=== PATIENT | female | born 1985 | race Native Hawaiian/Other Pacific Islander ===

== ENCOUNTER 2017-07-12 12:53 | Inpatient (IN) | payer OTHER ==
--- NOTE | 2017-07-09 12:09 | History and Physical Report ---
History of Present Illness Date of examination: 07/09/17 Date of admission: 07/09/2017 Chief complaint: Presents from [facility] with bulging membranes at 19 1/7 weeks. Denies CTX, LOF, and VB. Admits to pelvic and vaginal pressure. History of present illness: Early entry into care at 5 6/7 Weeks, Currently receiving 17-OH Progestrone weekly due to a hx of delivery at 31 weeks in 2008. 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) YARDMASTER History: abnormal PAP smear (LSIL (05/2017)) Family/Genetic History: none Social history: - Obstetrical History Expected Date of Delivery: 12/02/17 Actual Gestation: 19 Week(s) 1 Day(s) : 3 Para: 2 Hx # Term Pregnancies: 1 Number of Pregnancies: 1 Number of Living Children: 2 #1 Infant Gender: Male year: 2,000 Birthweight: 2.722 kg Method of Delivery: Vaginal Gestational age at delivery: 40 Complications: none #2 Infant Gender: Male year: 2,009 Birthweight: 1.361 kg Method of Delivery: Vaginal Gestational age at delivery: 31 Medications and Allergies Active Meds: Active Medications Acetaminophen (Tylenol) 650 mg PO Q4H PRN PRN Reason: Pain MILD(1-3)/Fever >100.5/LOVING Butorphanol Tartrate (Stadol) 2 mg IV Q2H PRN PRN Reason: Labor Pain Docusate Sodium (Colace) 100 mg PO Q12H PRN PRN Reason: Constipation Ampicillin Sodium (Polycillin/Ns 1 Gm/50 Ml) 1 gm in 50 mls @ 100 mls/hr IV Q4HR VIN PRN Reason: Protocol Ampicillin Sodium (Polycillin/Ns 2 Gm/100 Ml) 2 gm in 100 mls @ 100 mls/hr IV ONCE ONE PRN Reason: Protocol Stop: 07/09/17 12:47 Lactated Ringer's (Lactated Ringers) 1,000 mls @ 125 mls/hr IV DIRECT VIN Multivitamins/Iron/Calcium ( Vitamin) 1 each PO QDAY VIN Zolpidem Tartrate (Ambien) 10 mg PO ONCE PRN PRN Reason: Sleep Review of Systems All systems: negative - Vital Signs Vital signs: Vital Signs Pulse BP 97 H 135/84 07/09/17 12:00 07/09/17 12:00 Temp Pulse Resp BP Pulse Ox 97 H 135/84 07/09/17 12:00 07/09/17 12:00 - Physical Exam Breasts: Positive: normal Lungs: Positive: Clear to auscultation, Normal air movement Abdomen: Positive: normal appearance, soft, normal bowel sounds Genitourinary (Female): Positive: normal external genitalia, normal perenium Vagina: Positive: normal moisture Cervix: Positive: other Uterus: Positive: enlarged Anus/Rectum: Positive: normal perianal skin Extremities: Positive: normal - Obstetrical FHR: auscultation normal (160s) Uterine Contraction Monitor Mode: External Uterine Contraction Pattern: Absent Uterine Tone Measurement Phase: Resting Uterine Contraction Intensity: Mild Results All other labs normal. Assessment and Plan A: IUP @ 19 1/7 Weeks Buklging Membranes Hx of Delivery P: Admit to L&D per routine orders IV hydration IV Pain Control (PRN) CBC and Type and Screen ABX prophylaxis Trendelenburg Position with [facility] Consult Dr. Ortiz at bedside and agrees with current plan of care
[2017-07-09] MEDS: LACTATED RINGERS 1,000 ML IV SCH ×2 (12:59→20:25)
[2017-07-09 13:03] LABS: Basophils % (Auto) 0.2 % (0.0-1.8); Eosinophils # (Auto) 0.1 K/mm3 (0.0-0.4); Eosinophils % (Auto) 0.6 % (0.0-4.3); Hemoglobin 12.2 gm/dl (10.1-14.3); Lymphocytes # (Auto) 2.1 K/mm3 (1.2-5.4); Mean Corpuscular HGB Conc 35 % (30-34); Mean Corpuscular Hemoglobin 30 pg (28-32); Mean Corpuscular Volume 87 fl (79-97); Monocytes # (Auto) 0.5 K/mm3 (0.0-0.8); Monocytes % (Auto) 4.9 % (0.0-7.3); Platelet Count 233 K/mm3 (140-440); Red Cell Distribution Width 14.2 % (13.2-15.2)
[2017-07-09 13:09] LABS: Bacteria,Urine 2+ /HPF (Negative); Bilirubin,Urine NEG (Negative); Blood,Urine NEG (Negative); Color,Urine Yellow (Yellow); Mucus,Urine FEW /HPF; Nitrite,Urine NEG (Negative); Protein,Urine <15 mg/dL mg/dL (Negative); Urobilinogen,Urine < 2.0 mg/dL (<2.0)
[2017-07-09 13:25] LABS: Amphetamine Screen,Urine PRESUMPTIVE NEGATIVE; Benzodiazepines Screen,Urine PRESUMPTIVE NEGATIVE; Cannabinoid Screen,Urine PRESUMPTIVE NEGATIVE; Cocaine Screen,Urine PRESUMPTIVE NEGATIVE; Methadone Screen,Urine PRESUMPTIVE NEGATIVE; Opiate Screen,Urine PRESUMPTIVE NEGATIVE
--- NOTE | 2017-07-09 14:59 | Ultrasound Report ---
OB ultrasound: Cervical length evaluation; bulging sac Transvaginal and transabdominal imaging is performed. There is a burris gestation in breech presentation with a bulging sac into the vagina containing both feet. The width of the sac is approximately 7 cm. The cervix cannot be accurately measured but may be as much as 2 cm in length. There is a heart rate 147 beats per minute. The clinical gestational age is approximately 18 weeks 6 days. Impression: Incompetent cervix with bulging sac.
[2017-07-09] MEDS: POLYCILLIN/NS 1 GM/50 ML 1 GM/50 ML BAG IV SCH (17:17)
[2017-07-09] MEDS: STADOL IV PRN (18:11)
--- NOTE | 2017-07-09 19:21 | Consultation ---
History of Present Illness Consult date: 07/09/17 Requesting physician: MI SANTILLAN Reason for consult: contractions History of present illness: This is a 31 year old para 1101 at 19 weeks 1 days gestation (based on and LEONARDO of 12/02/17 ) for whom I recently provided a perinatology consultation for evaluation of suspected cervical shortening and dilation. The patient presented to following a regular visit and was oted to have BBOW (see below). At the time the patient was complaining of abdominal pain. At the time of my consultation the patient was on 17-OHP. This patient is the history of a delivery delivered in 2008 with unknown etiology. PAST OB HISTORY: * 1999: at term. BW: 6 pounds. * 2008: at 31 weeks. BW: 3 pounds. No records available for review. PAST MEDICAL & SURGICAL HISTORY: See report in hospital chart. PHYSICAL EXAM: Vital signs stable: Abdominal exam benign: Admission SVE: Visibly dilated to ~ 2 cm with BBOW measuring 7 cm. Nitrazine negative. SONO AT [facility] (07/09/17) EFW: 323 gm, FHR: 163 bpm Cervical Length: 2.9 cm Internal os/LORENA appear bulging in appearance. [facility] SONOGRAPHY 07/09/17 Transvaginal and transabdominal scan. Bulging sac into the vagina containing both feet. The width of the sac is 7 cm. The cervix cannot be accurately measured but may be as much as 2 cm in (?) width. 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 DANCER History: abnormal PAP smear (LSIL (05/2017)) Family/Genetic History: none - Obstetrical History : 3 #1 Gender: Male year: 2,000 Birthweight: 2.722 kg Method of Delivery: Vaginal Gestational age at delivery: 40 Complications: none #2 Infant Gender: Male year: 2,009 Birthweight: 1.361 kg Method of Delivery: Vaginal Gestational age at delivery: 31 Medications and Allergies Allergies Allergy/AdvReac Type Severity Reaction Status Date / Time No Known Allergies Allergy Unverified 07/09/17 12:10 Active Meds: Active Medications Acetaminophen (Tylenol) 650 mg PO Q4H PRN PRN Reason: Pain MILD(1-3)/Fever >100.5/LOVING Butorphanol Tartrate (Stadol) 2 mg IV Q2H PRN PRN Reason: Labor Pain Last Admin: 07/09/17 18:11 Dose: 2 mg Docusate Sodium (Colace) 100 mg PO Q12H PRN PRN Reason: Constipation Lactated Ringer's (Lactated Ringers) 1,000 mls @ 125 mls/hr IV DIRECT VIN Last Admin: 07/09/17 12:59 Dose: 125 mls/hr Ampicillin Sodium (Polycillin/Ns 1 Gm/50 Ml) 1 gm in 50 mls @ 100 mls/hr IV Q4H VIN PRN Reason: Protocol Last Admin: 07/09/17 17:17 Dose: 100 mls/hr Multivitamins/Iron/Calcium ( Vitamin) 1 each PO QDAY [facility] Zolpidem Tartrate (Ambien) 10 mg PO ONCE PRN PRN Reason: Sleep - Vital Signs Vital signs: Vital Signs Pulse BP 97 H 135/84 07/09/17 12:00 07/09/17 12:00 Temp Pulse Resp BP Pulse Ox 97.8 F 106 H 16 107/76 07/09/17 12:18 07/09/17 16:35 07/09/17 12:18 07/09/17 16:35 Results Result Diagrams: 07/09/17 12:12 Abnormal lab results 07/09/17 07/09/17 Range/Units 12:12 Unknown MCHC 35 H (30-34) % Seg Neutrophils % 75.3 H (40.0-70.0) % Seg Neutrophils # 8.1 H (1.8-7.7) K/mm3 U Epithel Cells (Auto) 37.0 H (0-13.0) /HPF All other labs normal. Assessment and Plan ASSESSMENT * This is a 32 year old para 1101 with apparent cervical shortening noted at 19 weeks of which are suggestive of an impending previable delivery ( inevitable ). * NOT a candidate for cerclage placement. SUGGESTED MANAGEMENT PLAN * We are in agreement with the ongoing admission to [facility]. * The options for the management of this were discussed with the patient in detail. * Given the degree of cervical effacement and dilatation noted on exam and via sonography, this patient IS NOT a candidate for rescue cerclage at this time. * There is currently no indication for steroids at this time. * We would however, recommend steroids at 23-24 weeks gestation. * Consider treatment with indomethacin 50 mg q 6 hours x 72 hours. * Consider treatment with progesterone suppositories q HS. * Bedrest in Trendelenberg position * Given the current degree of cervical dilation, the prospect for spontaneous rupture of membranes and uterine contractions unresponsive to tocolytic medications would appear to be appreciable. * While ongoing attempts to pharmacologically prolong should be pursued at this time, it would also be prudent to appreciate clinical situations for which continued tocolysis would be contraindicated. * I have indicated to the patient that the following occurrences would be indications for discontinuation of expectant management and proceeding with delivery: Unexplained vaginal bleeding heart rate changes suggesting uteroplacental insufficiency / demise. Rupture of membranes with painful contractions Advanced cervical dilation beyond 4-5 cm Fever, chills or uterine tenderness * I have reviewed the fact that based on this patients current presentation, she may benefit from a cerclage in future pregnancies. * [facility] will continue to follow this patient during her hospitalization. Thank you for allowing us to participate in the care of this patient. We look forward to the opportunity to assist in her continued management. If you have any questions, I may be reached at [phone].
[2017-07-09] MEDS: INDOCIN PO SCH (23:04)
[2017-07-10] MEDS: TYLENOL PO PRN ×2 (01:01→20:46)
[2017-07-10] MEDS: POLYCILLIN/NS 1 GM/50 ML 1 GM/50 ML BAG IV SCH ×6 (01:07→20:27)
[2017-07-10] MEDS: LACTATED RINGERS 1,000 ML IV SCH (05:12)
[2017-07-10] MEDS: INDOCIN PO SCH ×3 (05:13→17:36)
[2017-07-10] MEDS: PRENATAL VITAMIN PO SCH (09:19)
--- NOTE | 2017-07-10 11:08 | Progress Note ---
Assessment and Plan - Patient Problems (1) 19 weeks gestation of Current Visit: Yes Status: Acute Plan to address problem: Will continue vitals and monitor for bleeding or PPROM. (2) Inevitable Current Visit: Yes Status: Acute Plan to address problem: Expectant management. Subjective - Subjective Date of service: 07/10/17 Principal diagnosis: Inevitable at 19 weeks. Interval history: Patient is a 32 year old who is at 19 weeks gestation and was admitted yesterday for advanced cervical dilatation. She denied any contraction, fluid leakage or bleeding, but on exam, her cervix was found to be dilated with bulging membranes in the vagina. Sonogram showed the baby to be breech with feet in the vagina. MFM consult was done yesterday by Dr. Campa. Prognosis were discussed with the patient. Due to the baby being pre-viable and advanced cervical dilatation, no intervention was done. That was discussed with the patient yesterday and this AM. Patient wanted everything done if possible. I discussed the prognosis again with the patient and I told her that she may rupture at anytime and deliver. She wants some time to think about the whole situation. Objective - Vital Signs Vital Signs: Vital Signs - 12hr 07/10/17 07/10/17 07/10/17 05:14 05:19 08:12 Temperature Pulse Rate 86 86 88 Respiratory Rate Blood Pressure 110/52 136/82 Blood Pressure 110/52 [Left] 07/10/17 08:20 Temperature 97.8 F Pulse Rate 88 Respiratory 18 Rate Blood Pressure Blood Pressure 136/82 [Left] - Exam Cardiovascular: Normal S1, Normal S2 Lungs: Clear to auscultation Vulva: both: normal Uterine Contraction Pattern: Absent Deep Tendon Reflex Grade: Normal +2 - Labs Labs: Abnormal Labs 07/09/17 07/09/17 12:12 Unknown MCHC 35 H Seg Neutrophils % 75.3 H Seg Neutrophils # 8.1 H U Epithel Cells (Auto) 37.0 H Laboratory Results - last 24 hr 07/09/17 07/09/17 07/09/17 12:12 12:15 Unknown WBC 10.8 RBC 4.00 Hgb 12.2 Hct 35.0 MCV 87 MCH 30 MCHC 35 H RDW 14.2 Plt Count 233 Lymph % (Auto) 19.0 Teller % (Auto) 4.9 Eos % (Auto) 0.6 Baso % (Auto) 0.2 Lymph # 2.1 Teller # 0.5 Eos # 0.1 Baso # 0.0 Seg Neutrophils % 75.3 H Seg Neutrophils # 8.1 H Urine Color Yellow Urine Turbidity Cloudy Urine pH 5.0 Ur Specific Pray 1.006 Urine Protein <15 mg/dl Urine Glucose (UA) Neg Urine Ketones Neg Urine Blood Neg Urine Nitrite Neg Urine Bilirubin Neg Urine Urobilinogen < 2.0 Ur Leukocyte Esterase Mod Urine WBC (Auto) 5.0 Urine RBC (Auto) 3.0 U Epithel Cells (Auto) 37.0 H Urine Bacteria (Auto) 2+ Urine Mucus Few Urine Opiates Screen Urine Methadone Screen Ur Barbiturates Screen Ur Phencyclidine Scrn Ur Amphetamines Screen U Benzodiazepines Scrn Urine Cocaine Screen U Marijuana (THC) Screen Drugs of Abuse Note Blood Type O POSITIVE Antibody Screen Negative 07/09/17 Unknown WBC RBC Hgb Hct MCV MCH MCHC RDW Plt Count Lymph % (Auto) Teller % (Auto) Eos % (Auto) Baso % (Auto) Lymph # Teller # Eos # Baso # Seg Neutrophils % Seg Neutrophils # Urine Color Urine Turbidity Urine pH Ur Specific Pray Urine Protein Urine Glucose (UA) Urine Ketones Urine Blood Urine Nitrite Urine Bilirubin Urine Urobilinogen Ur Leukocyte Esterase Urine WBC (Auto) Urine RBC (Auto) U Epithel Cells (Auto) Urine Bacteria (Auto) Urine Mucus Urine Opiates Screen Presumptive negative Urine Methadone Screen Presumptive negative Ur Barbiturates Screen Presumptive negative Ur Phencyclidine Scrn Presumptive negative Ur Amphetamines Screen Presumptive negative U Benzodiazepines Scrn Presumptive negative Urine Cocaine Screen Presumptive negative U Marijuana (THC) Screen Presumptive negative Drugs of Abuse Note Disclamer Blood Type Antibody Screen
[2017-07-11] MEDS: POLYCILLIN/NS 1 GM/50 ML 1 GM/50 ML BAG IV SCH ×6 (02:03→21:45)
[2017-07-11] MEDS: INDOCIN PO SCH ×3 (02:04→13:57)
[2017-07-11] MEDS: PRENATAL VITAMIN PO SCH (10:02)
--- NOTE | 2017-07-11 11:25 | Progress Note ---
Assessment and Plan A: Inevitable AB @ 19.3 weeks P: Expectant management Subjective - Subjective Date of service: 07/11/17 Principal diagnosis: Inevitable at 19 weeks. Patient reports: other (wants to sleep, no C/O of pain, no leaking of fluid) Objective - Vital Signs Vital Signs: Vital Signs - 12hr 07/11/17 07/11/17 08:12 08:14 Temperature 97.0 F L Pulse Rate 90 Respiratory 16 Rate Blood Pressure 103/61 - Exam Breasts: deferred Cardiovascular: Regular rate Lungs: Clear to auscultation Abdomen: Present: soft Vulva: both: normal Uterus: Present: fundal height below umbilicus - Labs Labs: Abnormal Labs 07/09/17 07/09/17 12:12 Unknown MCHC 35 H Seg Neutrophils % 75.3 H Seg Neutrophils # 8.1 H U Epithel Cells (Auto) 37.0 H
[2017-07-11] MEDS: LACTATED RINGERS 1,000 ML IV SCH ×2 (13:59→23:25)
[2017-07-11] MEDS: CYTOTEC VG PRN (21:44)
[2017-07-11] MEDS: STADOL IV PRN (22:01)
[2017-07-12] MEDS: POLYCILLIN/NS 1 GM/50 ML 1 GM/50 ML BAG IV SCH ×2 (02:03→06:00)
[2017-07-12] MEDS: CYTOTEC VG PRN ×2 (02:05→06:08)
[2017-07-12] MEDS: STADOL IV PRN ×2 (02:12→05:13)
[2017-07-12] MEDS: LACTATED RINGERS 1,000 ML IV SCH (08:30)
--- NOTE | 2017-07-12 10:21 | Procedure Note ---
OB Delivery Note - Delivery Date of Delivery: 07/12/17 Surgeon: CONSUELO REEVES [employer] Waste [employer] Technician: YENNY YOUNG Estimated blood loss: 100cc - Vaginal Delivery presentation: vertex Intrapartum events: other(please specify) (SROM at 19 weeks GA) Delivery induction: none Delivery monitor: external uterine Route of delivery: Delivery placenta: spontaneous Episiotomy: none Delivery laceration: none Anesthesia: intravenous Delivery comments: at 0950 on 07/12/2017 of a nonviable female at 19 weeks 4 days GA, 0/ 0. Placenta delivered spontaneously. Perineum intact. EBL 100ml. Parents coping appropriately. - Infant A at 1 minute: 0 at 5 minutes: 0 Gender: Female (Nonviable at 19.4 weeks)
[~2017-07-12 12:53] MED LIST: AMBIEN PO PRN; COLACE PO PRN; NITRATEST PAPER MC ONE; PITOCin/NS 20 UNIT/1000ML DRIP 20 UNITS/1,000 ML BAG IV SCH; PITOCin/NS 20 UNIT/1000ML DRIP 20,000 MILLIUNITS/1,000 ML BAG IV ONE; POLYCILLIN/NS 1 GM/50 ML 1 GM/50 ML BAG IV SCH; POLYCILLIN/NS 2 GM/100 ML 2 GM/100 ML BAG IV ONE; SODIUM CHLORIDE FLUSH SYRINGE 10 ML IV NR
[2017-07-12] MEDS: MOTRIN PO SCH (17:50)
[2017-07-13] MEDS: MOTRIN PO SCH ×2 (00:26→06:28)
--- NOTE | 2017-07-13 09:25 | Progress Note ---
Assessment and Plan A: PPD 1 - stable P: Discharge pt to home F/U in 2 weeks to evaluate emotional state and in 6 weeks for PP exam Subjective - Subjective Date of service: 07/13/17 Principal diagnosis: Inevitable at 19 weeks. Patient reports: appetite normal, voiding normally, pain well controlled, ambulating normally : (19 weeks gestation) Objective - Vital Signs Latest vital signs: Vital Signs Temp Pulse Resp BP BP Pulse Ox 07/13/17 08:27 97.6 F 78 20 115/65 96 07/12/17 23:49 98.8 F 86 20 107/64 98 07/12/17 20:30 98.6 F 77 101/71 07/12/17 18:04 97.5 F L 102 H 18 125/76 97 07/12/17 13:49 97.6 F 83 18 112/70 96 07/12/17 13:15 86 112/70 95 07/12/17 10:50 96.8 F L 07/12/17 10:00 97.0 F L 07/12/17 09:26 102 H 131/64 Intake and Output 07/12/17 07/13/17 07/13/17 23:59 07:59 15:59 Intake Total 320 480 Balance 320 480 Intake: Oral 320 480 Other: Total, Intake Amount 320 480 # Voids Void 1 1 # Bowel Movements 0 - Exam Cardiovascular: Present: Regular rate, Normal S1, Normal S2, No murmurs Lungs: Present: Clear to auscultation, Normal air movement Abdomen: Present: normal appearance Vulva: both: normal Uterus: Present: normal, firm, fundal height below umbilicus Extremities: Present: normal Deep Tendon Reflex Grade: Normal +2
--- NOTE | 2017-07-13 09:30 | Discharge Summary ---
Providers - Providers Date of Admission: 07/12/17 12:57 Date of discharge: 07/13/17 Attending physician: MI SANTILLAN MD Primary care physician: MI SANTILLAN MD Hospitalization Reason for admission: labor, other (inevitable ) Delivery: Episiotomy: none Laceration: none Other procedures: none complications: none Discharge diagnosis: delivery (@ 19 weeks) baby: female Condition at discharge: Stable Disposition: DC-01 TO HOME OR SELFCARE Plan - Provider Discharge Summary Activity: routine, no sex for 6 weeks, no heavy lifting 4 weeks, no strenuous exercise Diet: routine Instructions: routine Additional instructions: [] Smoking cessation referral if applicable(refer to patient education folder for contact #) [] Refer to [facility] Booklet Call your doctor immediately for: * Fever > 100.5 * Heavy vaginal bleeding ( >1 pad per hour) * Severe persistent headache * Shortness of breath * Reddened, hot, painful area to leg or breast * Drainage or odor from incision. * Keep incision clean and dry at all times and follow doctor's instructions regarding bathing/showering - Follow up plan Follow up: MI SANTILLAN MD [Primary Care Provider] - 14 Days (F/P in 2 weeks to evaluate emotional state & in 6 weeks for PP exam)
[2017-07-13] MEDS: PRENATAL VITAMIN PO SCH (10:11)
[2017-07-13 12:53] VITALS: BP 129/75
== END 2017-07-13 11:45 | disposition home or self-care (01) | DRG 779 ==
LOC: LDOR 12:53 → LD 12:53 → OB 13:15
PROVIDERS: ADMIT Obstetrics & Gynecology; ATTEND Obstetrics & Gynecology
PROC: 10E0XZZ Delivery of Products of Conception, External Approach (ICD-10-PCS; principal; 2017-07-11)
DX: O03.9 Complete or unspecified spontaneous abortion without complication (principal); Z3A.19 19 weeks gestation of pregnancy; Z37.1 Single stillbirth
CPT/HCPCS: 36415; 76815; 76817; 80307; 81001; 85025; 86850; 86900; 86901; 87086; 88305; J0290; J0595; J2590; J7120